=== PATIENT | male | born 1970 | race Caucasian/White ===

== ENCOUNTER → 2023-02-17 06:42 | Outpatient (CLI) | payer OTHER, SELFPAY ==
--- NOTE | ~2023-02-17 | XR_ITS ---
EXAMINATION:XR cervical spine 4-5V DATE: 02/18/2023 08:00 INDICATION: Neck pain TECHNIQUE: AP, lateral, lateral swimmers and odontoid views of the cervical spine are provided. COMPARISON: 06/06/2017 FINDINGS: Alignment is normal. The odontoid process is intact. No fracture is identified. Vertebral b bettye heights and disk spaces are normal. Prevertebral soft tissues are normal. IMPRESSION: 1. No acute osseous abnormality. Reviewed, dictated and finalized at location A.
== END ==
PROVIDERS: PCP Internal Medicine; Visit Provider Internal Medicine
DX: M54.2 Cervicalgia (principal)
CPT/HCPCS: 72050